=== PATIENT | male | born 1975 | race Caucasian/White ===

== ENCOUNTER 2020-12-02 09:03 | Emergency (ER) | payer OTHER, SELFPAY ==
--- NOTE | ~2020-12-02 | XR_ITS ---
XR finger 5th RT min 2V 12/02/2020 09:37 INDICATION: Right fifth finger pain PROCEDURE: 4 views right fifth finger COMPARISON: No prior studies for comparison. FINDINGS: Fracture, dislocation or subluxation is not identified. The soft tissues appear within norm al limits. No foreign bodies are identified. IMPRESSION: 1: NO ACUTE BONE OR JOINT ABNORMALITY IDENTIFIED. Reviewed, dictated and finalized at location B.
[2020-12-02 09:30] VITALS: BP 185/112; PULSE 89; RESP 16; TEMP 36.3; O2SAT 97
--- NOTE | 2020-12-02 09:37 | PC.NURSE ---
PT DECLINED ICE FOR COMFORT
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
[2020-12-02 10:00] VITALS: BP 160/100
== END 2020-12-02 10:00 | disposition home or self-care (01) ==
PROVIDERS: Emergency Provider Registered Nurse
DX: S60.051A Contusion of right little finger without damage to nail, initial encounter (principal); W22.8XXA Striking against or struck by other objects, initial encounter; F17.210 Nicotine dependence, cigarettes, uncomplicated
CPT/HCPCS: 73140; 99213; G0463